=== PATIENT | female | born 1990 | race African-American/Black ===

== ENCOUNTER 2017-10-17 20:05 | Emergency (ER) | payer SELFPAY ==
[~2017-10-17] VITALS: Ht 167.6 cm; Wt 77.0 kg
[2017-10-17] MEDS ORDERED: LORAZEPAM 1MG TABLET PO ONE (21:00)
[2017-10-17] MEDS ORDERED: KETOROLAC 60MG/2ML VIAL IM ONE (21:00)
[2017-10-17] MEDS ORDERED: ACETAMINOPHEN 325MG TABLET PO ONE (21:15)
[2017-10-17 22:01] LABS: BASOPHILS % 0.4 % (0.0-2.0); EOSINOPHILS % 4.8 % (0.0-5.0); HEMOGLOBIN. 12.1 g/dL (12.0-16.0); LYMPHOCYTES % 27.2 % (20.0-50.0); MEAN CORPUSCULAR HEMOGLOBIN 28.9 pg (28.0-32.0); MEAN CORPUSCULAR VOLUME 86.2 fL (81.0-99.0); MEAN PLATELET VOLUME 8.4 fl (7.4-10.4); MONOCYTES % 7.7 % (2.0-8.0); NEUTROPHILS % 59.9 % (40.0-76.0); PLATELET 273 x1000/uL (130-400); RED BLOOD CELL COUNT 4.18 mill/uL (4.2-5.4); RED CELL DISTRIBUTION WIDTH 14.1 % (11.6-14.6)
[2017-10-17 22:17] LABS: CARBON DIOXIDE 28 mEq/L (21-32); CHLORIDE 101 mEq/L (98-107)
[2017-10-17 22:29] LABS: B-HCG QUANTITATIVE 4900 mIU/mL (<3)
[2017-10-18 00:41] VITALS: BP 124/73
== END 2017-10-18 00:46 | disposition home or self-care (01) ==
LOC: ER 20:24
DX: O9A.212 Injury, poisoning and certain other consequences of external causes complicating pregnancy, second trimester (principal); M54.2 Cervicalgia; M54.9 Dorsalgia, unspecified; R10.2 Pelvic and perineal pain; Z3A.18 18 weeks gestation of pregnancy; V49.9XXA Car occupant (driver) (passenger) injured in unspecified traffic accident, initial encounter; Y93.89 Activity, other specified; Y92.89 Other specified places as the place of occurrence of the external cause; Y99.8 Other external cause status
CPT/HCPCS: 36415; 76815; 80053; 84702; 85025; 86886; 99285